=== PATIENT | female | born 1965 | race African-American/Black ===

== ENCOUNTER 2018-01-21 01:07 | Emergency (ER) | payer MEDICARE, MEDICAID ==
[~2018-01-21] VITALS: Ht 165.1 cm; Wt 108.9 kg
--- NOTE | 2018-01-21 01:33 | Emergency Room Report ---
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 She also has diabetes. She took her diabetic medication but did not eat. She presents with chief complaint of hypoglycemia. Per EMS her blood sugar was low. They gave her D50 and now is elevated. She is back to her baseline mentally. No other complaint. Allergies: Coded Allergies: PENICILLINS (Verified Allergy, Unknown, 01/21/18) Patient History Past Medical History: see triage record, old chart reviewed, DM, HTN, CVA/TIA Past Surgical History: other Pertinent Family History: none Social History: Denies: smoking Last Menstrual Period: n/a Now: No Immunizations: other Reviewed Nursing Documentation: PMH: Agreed; PSxH: Agreed Nursing Documentation-PMH Past Medical History: No History, Except For Hx Hypertension: Yes Hx Diabetes: Yes - DM2 Hx Cerebrovascular Accident: Yes - right-sided deficit Review of Systems Eye: Denies: eye pain, blurred vision ENT: Denies: ear pain, nose congestion, throat swelling Respiratory: Denies: cough, shortness of breath Cardiovascular: Denies: chest pain, palpitations Gastrointestinal: Denies: abdominal pain, diarrhea, nausea, vomiting Musculoskeletal: Denies: back pain, joint pain Skin: Denies: rash Neurological: Denies: headache, numbness Endocrine: Denies: increased thirst, increased urine Hematologic/Lymphatic: Denies: easy bruising All Other Systems: negative except mentioned in HPI Physical Exam Vital Signs Date Time Temp Pulse Resp B/P (MAP) Pulse Ox O2 Delivery O2 Flow Rate FiO2 01/21/18 01:04 98.0 74 16 163/89 100 Room Air 98.1 vitals with high blood pressure Sp02 EP Interpretation: reviewed, normal General Appearance: well appearing, no apparent distress, alert Head: normocephalic, atraumatic Eyes: bilateral eye PERRL, bilateral eye EOMI ENT: hearing grossly normal, normal pharynx Neck: full range of motion, supple, no meningismus Respiratory: chest non-tender, lungs clear, normal breath sounds Cardiovascular #1: regular rate, rhythm, no murmur Gastrointestinal: normal bowel sounds, non tender, no mass, no organomegaly, no bruit, non-distended Musculoskeletal: back normal, normal range of motion Neurologic: alert, oriented x3, other - left-sided weakness from stroke Psychiatric: mood/affect normal Skin: warm/dry Medical Decision Making Diagnostic Impression: Primary Impression: Hypoglycemia due to type 1 diabetes mellitus ER Course Patient with hypoglycemia from her diabetes medication. She takes both pill and insulin. She has been at baseline here. Blood sugar glucose unremarkable. I fed her here and we'll recheck her blood sugar. If continue to be elevated , we'll discharge home. Last Vital Signs Date Time Temp Pulse Resp B/P (MAP) Pulse Ox O2 Delivery O2 Flow Rate FiO2 01/21/18 01:04 98.0 74 16 163/89 100 Room Air 98.1 Status: improved Disposition: HOME, SELF-CARE Condition: Stable Additional Instructions: Eat regularly if you are taking your diabetes medication. Follow-up with your doctor in a week. Return if worse. JENNIFER ZHAO M.D. Jan 21, 2018 01:33
[2018-01-21 02:30] VITALS: BP 142/57
== END 2018-01-21 02:30 | disposition home or self-care (01) ==
LOC: EDBD 01:07 → EMR 01:22
DX: E11.649 Type 2 diabetes mellitus with hypoglycemia without coma (principal); Z79.4 Long term (current) use of insulin; Z79.84 Long term (current) use of oral hypoglycemic drugs; I69.351 Hemiplegia and hemiparesis following cerebral infarction affecting right dominant side; Z88.0 Allergy status to penicillin
CPT/HCPCS: 99282